=== PATIENT | female | born 1980 | race Caucasian/White ===

== ENCOUNTER → 2021-06-15 | Outpatient (CLI) | payer BC ==
[~2021-06-15] MED LIST: AMBIEN10 MG PO; CELEXA40 MG; GABAPENTIN600 MG; GLIMEPIRIDE4 MG; HYDROCODON-ACE1 EAC9 PO; HYDROXYZINE HCL25 MG; JANUVIA50 MG; MIDODRINE HCL2.5 MG; ORTHO TRI-CYCL1 EACH; PROAIR HFA INH8.5 GM; PROMETHAZINE HC25 M1; SOMA250 MG PO; VESICARE10 MG
== END ==
LOC: NM 08:58
PROVIDERS: ATTEND Family Medicine
DX: Z74.09 Other reduced mobility (principal)
CPT/HCPCS: 78452; 93017; A9502